=== PATIENT | female | born 1960 | race American Indian/Alaskan Native ===

== ENCOUNTER → 2017-11-26 | Emergency (ER) | payer BC ==
[~2017-11-26] VITALS: Ht 172.7 cm; Wt 74.4 kg
== END | disposition home or self-care (01) ==
LOC: ER 09:57
DX: S61.422A Laceration with foreign body of left hand, initial encounter (principal); W45.8XXA Other foreign body or object entering through skin, initial encounter; Y93.89 Activity, other specified; Y92.828 Other wilderness area as the place of occurrence of the external cause; Y99.8 Other external cause status